=== PATIENT | male | born 1970 | race American Indian/Alaskan Native ===

== ENCOUNTER 2017-09-10 18:46 | Emergency (ER) | payer OTHER ==
[2017-09-10 18:47] VITALS: BMI 29.2
[2017-09-10 19:00] VITALS: RESP 18; O2SAT 100
[2017-09-10] MEDS ORDERED: Lidocaine 5% Patch TD STA (19:15)
[2017-09-10] MEDS ORDERED: Lidocaine 5% Patch TD ONE (19:22)
--- NOTE | 2017-09-10 20:49 | C.PDOC ---
History Of Present Illness 47yo male, presents to the emergency department with complaints of pain in lower back, that he developed while lifting heavy object earlier today. Patient dneies any numbness/weakness, sensory changes, bladder/bowel incontinence, or any other associated symptoms. No other complaints at this time. Chief Complaint (Nursing): Back Pain History Per: Patient History/Exam Limitations: no limitations Past Medical History Reviewed: Historical Data, Nursing Documentation, Vital Signs Vital Signs: Last Vital Signs Temp 98.5 F 09/10/17 20:56 Pulse 56 L 09/10/17 20:56 Resp 18 09/10/17 20:56 BP 107/67 09/10/17 20:56 Pulse Ox 100 09/10/17 21:05 Family History: States: No Known Family Hx - Social History Hx Alcohol Use: No Hx Substance Use: No - Immunization History Hx Tetanus Toxoid Vaccination: Yes Hx Influenza Vaccination: No Review Of Systems Constitutional: Negative for: Fever, Chills Respiratory: Negative for: Shortness of Breath Genitourinary: Negative for: Incontinence Musculoskeletal: Positive for: Back Pain Skin: Negative for: Rash Neurological: Negative for: Weakness, Numbness Physical Exam - Physical Exam Appears: Non-toxic Skin: Normal Color, Warm, Dry, No Rash Head: Atraumatic Eye(s): bilateral: Normal Inspection Nose: Normal Oral Mucosa: Moist Lips: Normal Appearing Neck: Normal ROM Cardiovascular: Rhythm Regular, No Murmur Respiratory: Normal Breath Sounds, No Accessory Muscle Use Back: Paraspinal Tenderness ((+)midline) Extremity: Normal ROM, No Deformity, No Swelling Neurological/Psych: Oriented x3, Normal Speech ED Course And Treatment O2 Sat by Pulse Oximetry: 100 - Other Rad LS spine xray X-Ray: Viewed By Me, Read By Radiologist Interpretation: No bony lesions Progress Note: On re-evaluation patient feels better, still has low back pain, ambulatory, no neuro deficit. Disposition - Disposition Referrals: Wanda Khan MD [Staff Provider] - Jeremiah Travis MD [Staff Provider] - William Gonzalez MD [Staff Provider] - Disposition: HOME/ ROUTINE Disposition Time: 20:47 Condition: STABLE Additional Instructions: Follow up with PMD and translational specialist within 2-3 days. return to ED if feel worse. Prescriptions: Lidocaine 5% [Lidoderm] 1 patch TP DAILY #30 patch Ibuprofen [Motrin Tab] 600 mg PO Q8 #30 tab diaZEpam [Valium] 2 mg PO TID #15 tab Instructions: Low Back Pain (DC) Forms: [facility] (Romanian), Work Excuse - Clinical Impression Clinical Impression: Low back pain - Scribe Statement The provider has reviewed the documentation as recorded by the Scribe (Deb Glez) All medical record entries made by the Scribe were at my direction and personally dictated by me. I have reviewed the chart and agree that the record accurately reflects my personal performance of the history, physical exam, medical decision making, and the department course for this patient. I have also personally directed, reviewed, and agree with the discharge instructions and disposition.
[2017-09-10 20:59] VITALS: BP 107/67; PULSE 56; TEMP 98.5
--- NOTE | 2017-09-11 14:43 | RAD ---
PROCEDURE: Radiographs of the Lumbar Spine. HISTORY: pain after lifting COMPARISON: No prior. FINDINGS: BONES: Normal alignment. No listhesis. No fracture. DISC SPACES: Unremarkable. OTHER FINDINGS: None. IMPRESSION: Unremarkable radiographs of the lumbar spine.
== END 2017-09-10 20:59 | disposition home or self-care (01) ==
LOC: SUPCPDRO 18:46 → C.ER 18:46
DX: M54.5 Low back pain (principal)
CPT/HCPCS: 72100; 96372; 99283; J1885

== ENCOUNTER 2018-03-25 07:01 | Emergency (ER) | payer OTHER ==
[2018-03-25 07:01] VITALS: BMI 29.2
[2018-03-25 07:14] VITALS: O2SAT 99
--- NOTE | 2018-03-25 07:31 | C.PDOC ---
History Of Present Illness 47 years old male presents to ED for evaluation of bilateral knee abrasions. No particular trauma but roller skates aggressively multiple times per week and fell most recently this past Wednesday. Patient states he roller skates 4-5 times a week. Denies leg pain, or any other complaints. Time Seen by Provider: 03/25/18 07:25 Chief Complaint (Nursing): Lower Extremity Problem/Injury History Per: Patient History/Exam Limitations: no limitations Onset/Duration Of Symptoms: Days Current Symptoms Are (Timing): Still Present Recent travel outside of the [place]: No - Knee Description Of Injury: Fell Past Medical History Reviewed: Historical Data, Nursing Documentation, Vital Signs Vital Signs: Last Vital Signs Temp 98.4 F 03/25/18 07:04 Pulse 99 H 03/25/18 07:04 Resp 20 03/25/18 07:04 BP 123/65 03/25/18 07:04 Pulse Ox 99 03/25/18 07:04 - Medical History PMH: No Chronic Diseases Surgical History: No Surg Hx Family History: States: Unknown Family Hx - Social History Hx Alcohol Use: No Hx Substance Use: No - Immunization History Hx Tetanus Toxoid Vaccination: No Hx Influenza Vaccination: No Hx Pneumococcal Vaccination: No Review Of Systems Except As Marked, All Systems Reviewed And Found Negative. Constitutional: Negative for: Fever Cardiovascular: Negative for: Chest Pain Musculoskeletal: Negative for: Leg Pain, Foot Pain Physical Exam - Physical Exam Additional Physical Exam Comments: Constitutional: No acute distress. Musculoskeletal: No tenderness or swelling of extremities. Full ROM. Skin: No rash. Two small superficial scabs, one on each knee. ED Course And Treatment O2 Sat by Pulse Oximetry: 99 (RA) Pulse Ox Interpretation: Normal Medical Decision Making Medical Decision Making: Plan: * Knee X-Ray XRs negative for fracture or dislocation. Discharged home, f/u Ortho. Disposition - Disposition Referrals: John Moreland MD [Staff Provider] - Disposition: HOME/ ROUTINE Disposition Time: 08:25 Condition: STABLE Instructions: Knee Pain Forms: [facility] (Tur[place] Islander) - Clinical Impression Clinical Impression: Knee pain - Scribe Statement The provider has reviewed the documentation as recorded by the Scribe Harsha Ward All medical record entries made by the Scribe were at my direction and personally dictated by me. I have reviewed the chart and agree that the record accurately reflects my personal performance of the history, physical exam, medical decision making, and the department course for this patient. I have also personally directed, reviewed, and agree with the discharge instructions and disposition.
[2018-03-25 08:32] VITALS: BP 129/84; PULSE 88; RESP 18; TEMP 98.1
--- NOTE | 2018-03-25 11:00 | RAD ---
Date of service: 03/25/2018 PROCEDURE: Bilateral Knee Radiographs. HISTORY: knee pain COMPARISON: None. FINDINGS: BONES: Bone alignment and mineralization are normal. There is no acute displaced fracture or bone destruction. JOINTS: There is mild tricompartmental degenerative osteoarthrosis with reduced joint spaces, marginal osteophytes and tibial spiking, worse in the medial compartment. SOFT TISSUES: Right Knee: Normal. Left Knee: Normal. JOINT EFFUSION: Right Knee: None. Left Knee: None. OTHER FINDINGS: None. IMPRESSION: No acute fracture or dislocation. Mild tricompartmental degenerative osteoarthrosis, worse in the medial compartments.
== END 2018-03-25 08:32 | disposition home or self-care (01) ==
LOC: C.ER 07:01
DX: M25.562 Pain in left knee (principal); M25.561 Pain in right knee

== ENCOUNTER 2018-05-19 17:45 | Emergency (ER) | payer OTHER ==
[2018-05-19 17:46] VITALS: BMI 29.2
[2018-05-19 17:58] VITALS: BP 125/83; PULSE 65; RESP 20; TEMP 98.1; O2SAT 100
--- NOTE | 2018-05-19 18:23 | C.PDOC ---
History Of Present Illness 47 y/o male presents to the ER complaining of right knee pain with associated intermittent swelling which has been present for the past several months. Patient states that he does skating and running which exacerbates the pain. Patient reports that he was seen in ER for similar symptoms several months ago and he was told to follow up with an orthopedist. However, he failed to follow up.Denies having new trauma, weakness, numbness, and rash. Time Seen by Provider: 05/19/18 18:11 Chief Complaint (Nursing): Lower Extremity Problem/Injury History Per: Patient History/Exam Limitations: no limitations Onset/Duration Of Symptoms: Days Current Symptoms Are (Timing): Still Present Severity: Moderate Past Medical History Reviewed: Historical Data, Nursing Documentation, Vital Signs Vital Signs: Last Vital Signs Temp 98.1 F 05/19/18 17:56 Pulse 65 05/19/18 17:56 Resp 20 05/19/18 17:56 BP 125/83 05/19/18 17:56 Pulse Ox 100 05/19/18 17:56 - Medical History PMH: No Chronic Diseases Surgical History: No Surg Hx Family History: States: No Known Family Hx - Social History Hx Alcohol Use: No Hx Substance Use: No - Immunization History Hx Tetanus Toxoid Vaccination: No Hx Influenza Vaccination: No Hx Pneumococcal Vaccination: No Review Of Systems Except As Marked, All Systems Reviewed And Found Negative. Musculoskeletal: Positive for: Other (right knee pain) Skin: Negative for: Rash Neurological: Negative for: Weakness, Numbness Physical Exam - Physical Exam Appears: Non-toxic, No Acute Distress Skin: Normal Color, Warm, Dry Head: Atraumatic, Normacephalic Eye(s): bilateral: Normal Inspection Nose: Normal Oral Mucosa: Moist Neck: Normal ROM, Supple Chest: Symmetrical Extremity: Normal ROM, No Tenderness, No Swelling Neurological/Psych: Oriented x3, Normal Speech, Normal Motor Gait: Steady ED Course And Treatment O2 Sat by Pulse Oximetry: 100 (RA) Pulse Ox Interpretation: Normal Medical Decision Making Medical Decision Making: The patient was given Orthopedist follow up. Patient is declining pain medications at this time. Patient has been discharged and instructed to follow up with orthopedist. Disposition - Disposition Referrals: Karen Phipps MD [Staff Provider] - Elbert Randle MD [Staff Provider] - Beck Ojeda MD [Staff Provider] - Disposition: HOME/ ROUTINE Disposition Time: 18:22 Condition: GOOD Additional Instructions: Follow up with the Orthopedist within 1-2 days. Return if worsened. Prescriptions: Naproxen [Naprosyn] 500 mg PO BID #20 tab Instructions: Meniscal Tear (DC) Forms: [employer] (Andorran) - Clinical Impression Clinical Impression: Knee pain - PA / PSYCHOPAEDIC NURSE / Resident Statement MD/DO has reviewed & agrees with the documentation as recorded. - Scribe Statement The provider has reviewed the documentation as recorded by the Nickibtyra Hargrove Provider Attestation All medical record entries made by the Nickibtyra were at my direction and persona lly dictated by me. I have reviewed the chart and agree that the record accurately reflects my personal performance of the history, physical exam, medical decision making, and the department course for this patient. I have also personally directed, reviewed, and agree with the discharge instructions and disposition.
== END 2018-05-19 18:35 | disposition home or self-care (01) ==
LOC: C.ER 17:45
DX: M25.561 Pain in right knee (principal)

== ENCOUNTER 2018-06-11 18:40 | Emergency (ER) | payer MEDICAID, OTHER ==
[2018-06-11 18:40] VITALS: BMI 29.2
[2018-06-11 18:49] VITALS: BP 137/79; PULSE 65; RESP 16; TEMP 97.9; O2SAT 100
--- NOTE | 2018-06-11 18:53 | C.PDOC ---
History Of Present Illness 47 y/o male pt previously seen in the ER presents to the ER for medical eval of chronic right knee pain. Pt rates the pain 7/10, but does not take any pain meds. Pt has been seen several times in ED for same complaint but has not been compliant with medications or f/u instructions to orthopedics. His current complaint is that the knee has become increasingly swollen after skating yesterday. He denies any paresthesia, weakness, and trauma. He denies resting the leg or applying any [id number] remedies. Time Seen by Provider: 06/11/18 18:50 Chief Complaint (Nursing): Lower Extremity Problem/Injury History Per: Patient History/Exam Limitations: no limitations Onset/Duration Of Symptoms: Days Current Symptoms Are (Timing): Still Present Past Medical History Reviewed: Historical Data, Nursing Documentation, Vital Signs Vital Signs: Last Vital Signs Temp 97.9 F 06/11/18 18:42 Pulse 65 06/11/18 18:42 Resp 16 06/11/18 18:42 BP 137/79 06/11/18 18:42 Pulse Ox 100 06/11/18 18:42 Family History: States: Unknown Family Hx - Social History Hx Alcohol Use: No Hx Substance Use: No - Immunization History Hx Tetanus Toxoid Vaccination: No Hx Influenza Vaccination: No Hx Pneumococcal Vaccination: No Review Of Systems Constitutional: Negative for: Other (trauma) Musculoskeletal: Positive for: Other (right knee pain ) Neurological: Negative for: Weakness, Other (paresthesia ) Physical Exam - Physical Exam Appears: Well, Non-toxic, No Acute Distress Skin: Warm, Dry Head: Atraumatic, Normacephalic Chest: Symmetrical Cardiovascular: Rhythm Regular Respiratory: Normal Breath Sounds, No Rales, No Rhonchi, No Wheezing Gastrointestinal/Abdominal: Soft, No Tenderness Extremity: Normal ROM (of right knee ), Tenderness, Pedal Edema, No Calf Tende rness, Capillary Refill (<2 sec), No Deformity, No Swelling Extremity: Bilateral: Atraumatic Pulses: Left Dorsalis Pedis: Normal, Right Dorsalis Pedis: Normal Neurological/Psych: Oriented x3, Normal Speech, Normal Cognition, Normal Motor, Normal Sensation Gait: Steady ED Course And Treatment O2 Sat by Pulse Oximetry: 100 (RA) Pulse Ox Interpretation: Normal Medical Decision Making Medical Decision Making: plans: refuse to take naproxen knee brace was placed and told to f/u with ortho clinic on wednesday. Disposition Counseled Patient/Family Regarding: Diagnosis, Need For Followup, Rx Given - Disposition Referrals: [facility] [Outside] [facility] [place] [Outside] Disposition: HOME/ ROUTINE Disposition Time: 19:13 Condition: STABLE Additional Instructions: Follow up with Ortho On Wednesday at Clinic Start Taking Naproxen twice daily Rest, Ice, Compression (knee brace) and Elevation Patient verbalizes understanding and is in agreement with plan Patient is stable for discharge Prescriptions: Naproxen [Naprosyn] 500 mg PO BID #30 tablet Instructions: Chronic Knee Pain (DC), Joint Pain Forms: [facility] (Malaysian) - Clinical Impression Clinical Impression: Knee pain, Joint swelling - PA / PARKING ENFORCEMENT SPECIALIST / Resident Statement MD/ has reviewed & agrees with the documentation as recorded. - Scribe Statement The provider has reviewed the documentation as recorded by the Elida Krueger Do All medical record entries made by the Scribe were at my direction and personally dictated by me. I have reviewed the chart and agree that the record accurately reflects my personal performance of the history, physical exam, medical decision making, and the department course for this patient. I have also personally directed, reviewed, and agree with the discharge instructions and disposition.
[2018-06-11] MEDS ORDERED: Naproxen 550 mg Tab PO STA (19:06)
[2018-06-11] MEDS ORDERED: Naproxen 550 mg Tab PO ONE (19:10)
== END 2018-06-11 19:34 | disposition home or self-care (01) ==
LOC: C.ER 18:40
DX: M25.561 Pain in right knee (principal); M79.89 Other specified soft tissue disorders; Z91.14 Patient's other noncompliance with medication regimen